=== PATIENT | female | born 1960 | race Caucasian/White ===

== ENCOUNTER 2017-01-02 14:40 | Inpatient (IN) | payer OTHER ==
[~2017-01-02] VITALS: Ht 162.6 cm; Wt 85.3 kg
[2017-01-02] MEDS ORDERED: ceFAZolin INJECTION 1,000 MG in NS (IVPB) 50 ML IV ONE (14:45)
[2017-01-02] MEDS ORDERED: morphine INJ 10 MG/ML 1ML (SYR OR VIAL) IVP ONE ×2 (14:45→16:00)
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
--- NOTE | 2017-01-02 15:07 | Diagnostic Imaging Report ---
INDICATION: Trauma. FINDINGS: The lungs appear clear without evidence of a focal pulmonary infiltrate, consolidation or pleural collection. There is no pneumothorax. Heart size and mediastinal contours are appropriate. No acute fractures are evident. IMPRESSION: 1. No radiographic evidence of an acute cardiopulmonary process. Dictated by: Dictated on workstation # [id number]
--- NOTE | 2017-01-02 15:12 | Diagnostic Imaging Report ---
EXAMINATION: Two views of the left tibia and fibula. INDICATION: Trauma. Distal leg pain. FINDINGS: There is a acute and severely comminuted fracture demonstrated of the distal fibula. There also is a transversely oriented fracture through the medial malleolus. There may be a small fracture through the posterior malleolus on the lateral view. The distal fibular cortex and tibia demonstrate overriding which suggests the possibility of a syndesmotic injury. Degenerative calcaneal spurs are demonstrated. The visualized portion of the foot is otherwise unremarkable. IMPRESSION: Comminuted distal left fibular fracture and a transversely oriented medial malleolus fracture and a suggestion of the possibility of a fracture within the posterior malleolus on the lateral view. The overriding of the tibia and fibula also suggests syndesmotic injury. Dictated by: Dictated on workstation # [id number]
[2017-01-02 15:14] LABS: BASOPHILS % (AUTO) 1 % (0-10); EOSINOPHILS # (AUTO) 0.1 10^3/uL (0.0-0.3); EOSINOPHILS % (AUTO) 1 % (0-10); LYMPHOCYTES % (AUTO) 26 % (12-44); MEAN CORPUSCULAR HEMOGLOBIN 30 PG (25-34); MEAN CORPUSCULAR HGB CONC 33 G/DL (32-36); MEAN CORPUSCULAR VOLUME 91 FL (80-99); MEAN PLATELET VOLUME 10.6 FL (7.4-10.4); MONOCYTES # (AUTO) 0.7 X 10^3 (0.0-1.0); MONOCYTES % (AUTO) 9 % (0-12); NEUTROPHILS # (AUTO) 4.9 X 10^3 (1.8-7.8); NEUTROPHILS % (AUTO) 63 % (42-75); PLATELET COUNT 233 10^3/uL (130-400); RED BLOOD COUNT 4.17 10^6/uL (4.35-5.85); RED CELL DISTRIBUTION WIDTH 13.4 % (10.0-14.5); WHITE BLOOD COUNT 7.7 10^3/uL (4.3-11.0)
[2017-01-02] MEDS ORDERED: morphine INJ 4 MG/ML 1 ML (VIAL/SYRINGE) IVP PRN (15:15)
[2017-01-02 15:32] LABS: ANION GAP 14 MMOL/L (5-14); BLOOD UREA NITROGEN 15 MG/DL (7-18); BUN/CREATININE RATIO 18; CALCIUM 9.1 MG/DL (8.5-10.1); CARBON DIOXIDE 18 MMOL/L (21-32); CHLORIDE 107 MMOL/L (98-107); CREATININE SERUM 0.83 MG/DL (0.60-1.30); GFR ESTIMATED > 60; GLUCOSE 104 MG/DL (70-105); POTASSIUM 3.5 MMOL/L (3.6-5.0); SODIUM 139 MMOL/L (135-145)
[2017-01-02] MEDS ORDERED: METOCLOPRAMIDE INJ 10 MG/2 ML (REGLAN) IV ONE (16:00)
[2017-01-02] MEDS ORDERED: FAMOTIDINE 20MG/2ML IV (PEPCID) IV ONE (16:00)
[2017-01-02] MEDS ORDERED: SUCCINYLCHOLINE INJ 100 MG/5 ML SYR ONE (16:11)
[2017-01-02] MEDS ORDERED: ONDANSETRON 4 MG/2 ML (SDV) Z0FRAN ONE (16:11)
[2017-01-02] MEDS ORDERED: LIDOCAINE PF 2% 5 ML (XYLOCAINE) VIAL ONE (16:11)
[2017-01-02] MEDS ORDERED: GENTAMICIN 40 MG/ML 2 ML INJ SDV ONE ×3 (16:11→17:11)
[2017-01-02] MEDS ORDERED: fentaNYL INJECTION 100 MCG/2 ML AMP ONE (16:11)
[2017-01-02] MEDS ORDERED: proPOfol 200 MG/20 ML (DIPRIVAN) VIAL IV ONE (16:11)
[2017-01-02] MEDS ORDERED: MIDAZOLAM 2 MG/2 ML (VERSED) VIAL ONE (16:11)
[2017-01-02] MEDS ORDERED: LACTATED RINGERS 1,000 ML IV ONE (16:11)
[2017-01-02] MEDS ORDERED: SEVOFLURANE (ULTANE) 15 ML INHAL SOLN ONE ×11 (16:11→19:26)
[2017-01-02] MEDS ORDERED: BISACODYL 10 MG SUPP (DULCOLAX) PR PRN (16:15)
[2017-01-02] MEDS ORDERED: morphine INJ 10 MG/ML 1ML (SYR OR VIAL) IVP PRN ×2 (16:15→20:00)
[2017-01-02] MEDS ORDERED: PROMETHAZINE INJ 25 MG/ML (PHENERGAN) AMP IVP PRN ×2 (16:15→20:00)
[2017-01-02] MEDS ORDERED: D5 1/2 NS 1000 ML IV SOLUTION 1,000 ML IV SCH (16:15)
[2017-01-02] MEDS ORDERED: ONDANSETRON 4 MG/2 ML (SDV) Z0FRAN IVP PRN ×2 (16:15→20:00)
[2017-01-02] MEDS ORDERED: diphenhydrAMINE 50 MG/ML INJ (BENADRYL) IV PRN (16:15)
[2017-01-02] MEDS ORDERED: NEO/POLY/BAC (NEOSPORIN) OINT 15 GM TUBE ONE (16:20)
[2017-01-02] MEDS: LACTATED RINGERS 1,000 ML IV PRN ×2 (16:47→17:28)
[2017-01-02] MEDS ORDERED: ceFAZolin 1,000 MG (ANCEF) VIAL ONE ×2 (16:53→23:43)
[2017-01-02] MEDS ORDERED: LACTATED RINGERS 1,000 ML IV PRN (17:23)
[2017-01-02] MEDS ORDERED: ceFAZolin 1,000 MG (ANCEF) VIAL IV ONE (17:30)
[2017-01-02] MEDS ORDERED: BUPIVACAINE 0.25% 30 ML (SENSORCAINE) VIAL ONE (18:21)
--- NOTE | 2017-01-02 18:51 | Progress Note-Pre Operative ---
Pre-Operative Progress Note H&P Reviewed The H&P was reviewed, patient examined and no changes noted. Date Seen by Provider: Jan 02, 2017 Time Seen by Provider: 15:30 Date H&P Reviewed: Jan 02, 2017 Time H&P Reviewed: 16:00 Pre-Operative Diagnosis: Displaced Open Bimalleolar Fracture Left Ankle FLOR JACQUES DO Jan 02, 2017 18:50
--- NOTE | 2017-01-02 18:53 | Progress Note-Post Operative ---
Post-Operative Progess Note Surgeon (s)/Garment Finisher (s) Surgeon FLOR JACQUES DO Garment Finisher: Dagoberto Humphries AVIATION ORDNANCE OFFICERMarilee Pre-Operative Diagnosis Displaced Open Bimalleolar Fracture Left Ankle Post-Operative Diagnosis same Procedure & Operative Findings Date of Procedure 01/02/17 Procedure Performed/Findings Open Reduction Internal Fixation Displace Bimalleolar Fracture Left Ankle Anesthesia Type General Estimated Blood Loss Estimated blood loss (mL): 20ml Specimens/Packing Specimens Removed none FLOR JACQUES DO Jan 02, 2017 18:53
[2017-01-02] MEDS ORDERED: morphine INJ 10 MG/ML 1ML (SYR OR VIAL) ONE (19:25)
--- NOTE | 2017-01-02 19:32 | Diagnostic Imaging Report ---
INDICATION: ORIF of the ankle. EXAMINATION: Left ankle from 01/02/2017 FINDINGS: This is an intraoperative evaluation of multiple fluoroscopic images provided. This makes the examination limited. There is a sideplate and multiple screws along the distal lateral malleolus. There are screws along the medial malleolus. The fracture sites are in good anatomic alignment. IMPRESSION: 1. Limited intraoperative evaluation. Dictated by: Dictated on workstation # [id number]
[2017-01-02] MEDS ORDERED: HYDROmorphone (DILAUDID) 2 MG/ML VIAL IVP PRN (20:00)
[2017-01-02] MEDS ORDERED: RT-ALBUTEROL SULF 2.5 MG/3 ML PRE-MIX VIAL INH ONE (20:00)
[2017-01-02 21:00] VITALS: BP 129/78
[2017-01-02] MEDS: KETOROLAC 30 MG/ML VIAL IVP PRN (21:01)
[2017-01-02 21:50] VITALS: BP 131/72
[2017-01-02 23:41] VITALS: BP 108/59
[2017-01-02] MEDS ORDERED: NS (IVPB) 50 ML ONE (23:43)
[2017-01-02] MEDS: ceFAZolin 2 GM/50 ML NS 50 ML IV SCH (23:51)
[2017-01-02] MEDS: HYDROcodone/APAP 10 MG/325 MG (LORTAB) TAB PO PRN (23:52)
[2017-01-03 04:39] VITALS: BP 90/58
[2017-01-03] MEDS: KETOROLAC 30 MG/ML VIAL IVP PRN (04:50)
[2017-01-03] MEDS ORDERED: NS (IVPB) 50 ML ONE (06:27)
[2017-01-03] MEDS ORDERED: ceFAZolin 1,000 MG (ANCEF) VIAL ONE (06:27)
[2017-01-03] MEDS: ceFAZolin 2 GM/50 ML NS 50 ML IV SCH (07:12)
[2017-01-03] MEDS: HYDROcodone/APAP 10 MG/325 MG (LORTAB) TAB PO PRN (07:39)
[2017-01-03 07:48] VITALS: BP 96/61
[2017-01-03] MEDS ORDERED: ASPIRIN E.C. 325 MG (ECOTRIN) TABLET PO SCH (09:00)
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
--- NOTE | 2017-01-03 11:37 | Discharge Inst-Simple/Standard ---
Discharge Inst-Standard Discharge Medications New, Converted or Re-Newed RX: RX on Chart Patient Instructions/Follow Up Plan of Care/Instructions/FU: f/u with orthopedics when back home in 10-14 days Touch toe only weight bearing on left leg using crutches for assistance Continue ice and elevation of left ankle Take 81mg aspirin daily to prevent DVT [place] 10/325 every 4-6 hrs for pain, may also take ibuprofen 600mg 3x/day as needed cover splint when showering, do not get wet No driving Activity as Tolerated: No Discharge Diet: No Restrictions Return to The Hospital For: Call for any questions or concerns, ask for who is erp consultant for orthopedics swelling could cause numbness/tingling/pain in left foot, may need to remove everton wrap and re-wrap splint a little looser BONI TSE APRN Jan 03, 2017 11:37 am
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
[2017-01-03] MEDS ORDERED: TRAM50TA2 PO (11:50)
[2017-01-03] MEDS ORDERED: SENN-20 PO (11:50)
[2017-01-03] MEDS ORDERED: HYDR-3820 PO (11:50)
[2017-01-03] MEDS ORDERED: SENNA W/DOCUSATE (SENOKOT S) TABLET PO SCH (21:00)
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
== END 2017-01-03 12:23 | disposition home or self-care (01) | DRG 494 ==
LOC: ER 14:41 → SDC 15:42 → 4TH 20:40 → ENPENDDIS 01-03 12:00
PROVIDERS: ADMIT Orthopaedic Surgery; ATTEND Orthopaedic Surgery
PROC: 0QSH04Z Reposition Left Tibia with Internal Fixation Device, Open Approach (ICD-10-PCS; 2017-01-02)
PROC: 0QSK04Z Reposition Left Fibula with Internal Fixation Device, Open Approach (ICD-10-PCS; principal; 2017-01-02 16:47)
DX: S82.842A Displaced bimalleolar fracture of left lower leg, initial encounter for closed fracture (principal); V00.831A Fall from motorized mobility scooter, initial encounter; Y99.8 Other external cause status
CPT/HCPCS: 36415; 71010; 73590; 80048; 85025; 94640; 94664; 96365; 96375; 96376

== ENCOUNTER → 2018-06-03 | Outpatient (CLI) | payer OTHER ==
[~2018-06-03] MED LIST: HYDR-3820 PO; SENN-20 PO; TRAM50TA2 PO
--- NOTE | 2018-06-10 15:48 | Diagnostic Imaging Report ---
INDICATION: Routine screening. COMPARISON: Prior mammogram from 06/02/2017. EXAMINATION: 2D and 3D bilateral screening mammography was performed with CAD. The current study was also evaluated with a Computer Aided Detection (CAD) system. FINDINGS: Scattered fibroglandular densities are identified, bilaterally. No mass or malignant appearing microcalcifications are seen. The axillae are unremarkable. IMPRESSION: No mammographic features suspicious for malignancy are identified. ACR BI-RADS Category 1: Negative. Result letter will be mailed to the patient. Note: At least 10% of breast cancer is not imaged by mammography. Dictated by: Dictated on workstation # [id number]
== END ==
LOC: RAD 10:35
PROVIDERS: ATTEND Obstetrics & Gynecology
DX: Z12.31 Encounter for screening mammogram for malignant neoplasm of breast (principal)
CPT/HCPCS: 77067

== ENCOUNTER 2018-07-19 05:35 | Outpatient (CLI) | payer OTHER ==
[~2018-07-19] VITALS: Ht 162.6 cm; Wt 62.1 kg
[2018-07-19] MEDS ORDERED: CYAN50008 PO (14:03)
[2018-07-19] MEDS ORDERED: MULT-351 PO (14:03)
== END 2018-07-19 14:04 | disposition home or self-care (01) ==
LOC: PREOP 05:35
PROVIDERS: ATTEND Specialist
DX: Z01.818 Encounter for other preprocedural examination (principal)

== ENCOUNTER 2018-07-22 06:17 | Day surgery (SDC) | payer OTHER ==
[~2018-07-22] VITALS: Ht 162.6 cm; Wt 62.1 kg
[~2018-07-22 06:17] MED LIST changes: +CYAN50008 PO; +MULT-351 PO
--- OUTSIDE RECORDS SUMMARY | 2018-07-22 06:20 | XMS REPORT ---
Author Author OTIS OCHOA Organization [facility] Address [address] [place] [address] Care Team Providers Care Health Outcomes Liaison Name Role Phone OTIS OCHOA Unavailable PROBLEMS Unknown Problems ALLERGIES No Information ENCOUNTERS Encounter Location Date Diagnosis [facility] [address] [facility] [id number] [place] [address] Sep, No condition on [place] II Z03.89 IMMUNIZATIONS No Known Immunizations SOCIAL HISTORY Never Assessed REASON FOR VISIT Psychological evaluation for bariatric surgery. PLAN OF CARE VITAL SIGNS MEDICATIONS Medication Instructions Dosage Frequency Start Date End Date Duration Status Meloxicam Active RESULTS No Results PROCEDURES Procedure Date Ordered Result Body Site Psych diagnostic evaluation, new patient September 09, 2017 INSTRUCTIONS MEDICATIONS ADMINISTERED No Known Medications
[2018-07-22] MEDS ORDERED: TIMOLOL MALEATE 0.5% 5 ML (TIMOPTIC) BTL OU PRN (06:30)
[2018-07-22] MEDS ORDERED: MOXIFLOXACIN OPHTH SOLN 5 MG/ML 0.3 ML SYRINGE OP ONE (06:30)
[2018-07-22] MEDS ORDERED: LIDOCAINE PF 1% 2 ML AMP IR PRN (06:30)
[2018-07-22] MEDS ORDERED: POVIDONE (BETADINE) OPHTH SOLN 5% 30 ML OP ONE (06:30)
[2018-07-22] MEDS: TETRACAINE 0.5% OPHTH SOLN 4 ML BTL (SINGLE DOSE ONLY) OU PRN ×4 (06:32→06:48)
[2018-07-22 06:38] VITALS: BP 120/80
[2018-07-22] MEDS: CYCLOPENTOLATE 1% (CYCLOGYL) 2 ML DROPS OP SCH ×3 (06:39→06:48)
[2018-07-22] MEDS: PHENYLEPHRINE 10% OPHTH (NEO-SYN) 5 ML BTL OU SCH ×3 (06:39→06:48)
--- NOTE | 2018-07-22 06:46 | Ophthalmologist Pre-Op Note ---
Pre-Operative Progress Note H&P Reviewed The H&P was reviewed, patient examined and no changes noted. Date H&P Reviewed: Jul 22, 2018 Time H&P Reviewed: 06:46 Pre-Op Dx Cataract, Right Eye AMANDA NAVARRETE MD Jul 22, 2018 06:46
[2018-07-22] MEDS ORDERED: MIDAZOLAM 2 MG/2 ML (VERSED) VIAL ONE (06:56)
--- NOTE | 2018-07-22 07:30 | Ophthalmology Operative Report ---
Cataract removal/placement IOL PREOPERATIVE DIAGNOSIS: Cataract Right Eye POSTOPERATIVE DIAGNOSIS: Cataract Right Eye PROCEDURE: Cataract removal and placement of posterior chamber implant, right eye SURGEON: Hayes Navarrete ANESTHESIA: Topical with sedation COMPLICATIONS: None ESTIMATED BLOOD LOSS: Minimal DESCRIPTION OF PROCEDURE: After proper informed consent was obtained, the patient, a 57 female, was taken to the Operating Room and the right eye was anesthetized with tetracaine. The right eye was then prepped and draped in the usual manner. A wire lid speculum was placed. A paracentesis was made at the left hand position. Preservative free lidocaine was injected into the anterior chamber followed by viscoelastic. A clear corneal incision was made in the temporal position. A capsulorrhexis was preformed and the central nuclear and cortical material were removed. The posterior capsule was polished and Horacio 16.5 AU00T0 IOL was placed into the capsular bag. The residual viscoelastic was aspirated and balanced saline solution was injected into the anterior chamber. Moxifloxacin was injected into the anterior chamber. The wound was checked and found to be water tight. The patient tolerated the procedure well without complications. HAYES NAVARRETE MD Jul 22, 2018 07:30
[2018-07-22 07:46] VITALS: BP 112/72
[2018-07-22] MEDS ORDERED: acetaZOLAMIDE ER 500 MG CAP (DIAMOX SEQUELS) PO ONE (08:00)
--- NOTE | 2018-07-22 12:35 | Anesthesia-General Post-Op ---
MAC Patient Condition Mental Status/LOC: Same as Preop Cardiovascular: Satisfactory Nausea/Vomiting: Absent Respiratory: Satisfactory Pain: Controlled Complications: Absent Post Op Complications Complications None Follow Up Care/Instructions Patient Instructions None needed. Anesthesiology Discharge Order Discharge Order Patient is doing well, no complaints, stable vital signs, no apparent adverse anesthesia problems. No complications reported per nursing. JUNG MCLEOD CRNA Jul 22, 2018 12:35
== END 2018-07-22 07:45 | disposition home or self-care (01) ==
LOC: SDC 06:17
PROVIDERS: ATTEND Specialist
DX: H25.11 Age-related nuclear cataract, right eye (principal); Z72.89 Other problems related to lifestyle

== ENCOUNTER → 2019-06-07 | Outpatient (CLI) | payer OTHER ==
--- NOTE | 2019-06-07 13:27 | Diagnostic Imaging Report ---
INDICATION: Routine screening. COMPARISON: 06/03/2018 and 06/02/2017. TECHNIQUE: 2D and 3D bilateral screening mammography was performed with CAD. FINDINGS: Scattered fibroglandular densities are identified bilaterally. The parenchymal pattern is stable. No mass or malignant appearing microcalcifications are seen. The axillae are unremarkable. IMPRESSION: No mammographic features suspicious for malignancy are identified. ACR BI-RADS Category 1: Negative. Result letter will be mailed to the patient. Note: At least 10% of breast cancer is not imaged by mammography. Dictated by: Dictated on workstation # [id number]
== END ==
LOC: RAD 09:55
PROVIDERS: ATTEND Obstetrics & Gynecology
DX: Z12.31 Encounter for screening mammogram for malignant neoplasm of breast (principal)
CPT/HCPCS: 77067

== ENCOUNTER → 2020-06-10 | Outpatient (CLI) | payer OTHER ==
[~2020-06-10] MED LIST changes: +ACHYD1T PO; -HYDR-3820 PO; -TRAM50TA2 PO; +TRM50T PO
--- NOTE | 2020-06-10 10:43 | Diagnostic Imaging Report ---
INDICATION: Routine screening. COMPARISON: 06/07/2019 and 06/03/2018. TECHNIQUE: 2D and 3D bilateral screening mammography was performed with CAD. FINDINGS: Scattered fibroglandular densities are identified bilaterally. The parenchymal pattern is stable. No mass or malignant appearing microcalcifications are seen. There are benign parenchymal and vascular calcifications bilaterally. Axillae are unremarkable. IMPRESSION: No mammographic features suspicious for malignancy are identified. ACR BI-RADS Category 2: Benign findings. Result letter will be mailed to the patient. Note: At least 10% of breast cancer is not imaged by mammography. Dictated by: Dictated on workstation # [id number]
== END ==
LOC: RAD 08:00
PROVIDERS: ATTEND Obstetrics & Gynecology
DX: Z12.31 Encounter for screening mammogram for malignant neoplasm of breast (principal)
CPT/HCPCS: 77063; 77067

== ENCOUNTER → 2021-06-16 | Outpatient (CLI) | payer OTHER ==
[~2021-06-16] MED LIST changes: -CYAN50008 PO; +CYAN50009 PO
--- NOTE | 2021-06-16 12:32 | Diagnostic Imaging Report ---
INDICATION: Routine screening. Comparison is made with prior mammogram 06/10/2020 and 06/07/2019. 2-D and 3-D bilateral screening mammography was performed with CAD. Both breasts are heterogeneously dense, limiting the sensitivity of mammography. Benign parenchymal and vascular calcifications again noted bilaterally. No mass or malignant-appearing microcalcifications are seen. Axillae are unremarkable. IMPRESSION: BI-RADS Category 2 No mammographic features suspicious for malignancy are identified. ACR BI-RADS Category 2: Benign findings. Result letter will be mailed to the patient. Note: At least 10% of breast cancer is not imaged by mammography. Dictated by: Dictated on workstation # [id number]
== END ==
LOC: RAD 11:15
PROVIDERS: ATTEND Obstetrics & Gynecology
DX: Z12.31 Encounter for screening mammogram for malignant neoplasm of breast (principal)
CPT/HCPCS: 77063; 77067

== ENCOUNTER 2022-04-06 05:30 | Outpatient (CLI) | payer OTHER ==
[~2022-04-06] VITALS: Ht 162.6 cm; Wt 77.3 kg
[2022-04-06] MEDS ORDERED: MELO15TA39 PO (17:04)
[2022-04-06] MEDS ORDERED: OMEP40CA6 PO (17:04)
== END 2022-04-06 17:17 | disposition home or self-care (01) ==
LOC: PREOP 05:30
PROVIDERS: ATTEND Podiatrist Foot & Ankle Surgery
DX: Z01.818 Encounter for other preprocedural examination (principal)

== ENCOUNTER 2022-04-13 06:04 | Day surgery (SDC) | payer OTHER ==
[~2022-04-13] VITALS: Ht 162.6 cm; Wt 77.3 kg
[2022-04-13] VITALS (11 sets, daily range): BP systolic 100–141; BP diastolic 75–97
[~2022-04-13 06:04] MED LIST changes: +MELO15TA39 PO; +OMEP40CA6 PO
[2022-04-13] MEDS ORDERED: ceFAZolin INJECTION 1,000 MG VIAL IV ONE (06:30)
[2022-04-13] MEDS ORDERED: LACTATED RINGERS 1,000 ML IV PRN (06:30)
[2022-04-13] MEDS ORDERED: ceFAZolin 1 GM/NS 50 ML (SDC/OR ONLY) IV ONE ×2 (06:45)
[2022-04-13] MEDS ORDERED: LIDOCAINE PF 2% 5 ML (XYLOCAINE) VIAL ONE (06:54)
[2022-04-13] MEDS ORDERED: ONDANSETRON 4 MG/2 ML (SDV) Z0FRAN ONE (06:54)
[2022-04-13] MEDS ORDERED: proPOfol 200 MG/20 ML (DIPRIVAN) VIAL IV ONE (06:54)
[2022-04-13] MEDS ORDERED: fentaNYL INJ 100 MCG/2 ML AMP ONE (06:54)
[2022-04-13] MEDS ORDERED: MIDAZOLAM 2 MG/2 ML (VERSED) VIAL ONE (06:55)
[2022-04-13] MEDS ORDERED: BUPIVACAINE 0.5% 30 ML (SENSORCAINE) VIAL ONE (07:20)
--- NOTE | 2022-04-13 07:53 | Progress Note-Pre Operative ---
Pre-Operative Progress Note Date of Available H&P: Apr 13, 2022 Date H&P Reviewed: Apr 13, 2022 Time H&P Reviewed: 07:52 Pre-Operative Diagnosis: Hallux Valgus, right LUCIA FALL DPScar Apr 13, 2022 07:53
[2022-04-13] MEDS ORDERED: SEVOFLURANE (ULTANE) 15 ML INHAL SOLN ONE (09:03)
--- NOTE | 2022-04-13 09:09 | Progress Note-Post Operative ---
Post-Operative Progess Note Surgeon (s)/Immigration Patrol Inspector (s) Surgeon LUCIA FALL DPM Immigration Patrol Inspector: none Pre-Operative Diagnosis Hallux Valgus, right Post-Operative Diagnosis Same Procedure & Operative Findings Date of Procedure 04/13/22 Procedure Performed/Findings Jung-Kenny Bunionectomy, right Anesthesia Type General Estimated Blood Loss Estimated blood loss (mL): Minimal Specimens/Packing Specimens Removed none LUCIA FALL DPM Apr 13, 2022 09:09
[2022-04-13] MEDS ORDERED: CEPH500C PO (09:11)
[2022-04-13] MEDS ORDERED: ACHD5005 PO (09:11)
[2022-04-13] MEDS ORDERED: HYDROcodone/APAP 5 MG/325 MG (LORTAB) TAB PO PRN (09:15)
[2022-04-13] MEDS ORDERED: HYDROmorphone 2 MG/ML VIAL (DILAUDID) IV ONE (09:15)
[2022-04-13] MEDS ORDERED: LACTATED RINGERS 1,000 ML IV SCH (09:15)
[2022-04-13] MEDS ORDERED: ONDANSETRON 4 MG/2 ML (SDV) Z0FRAN IVP PRN (09:15)
[2022-04-13] MEDS ORDERED: morphine INJ 10 MG/ML 1ML (SYR OR VIAL) IVP ONE (09:15)
--- NOTE | 2022-04-13 11:10 | Physical Therapy Ortho Eval ---
PT Orthopedic Evaluation Type of Surgery Hallux Valgus, right Prior Level of Function Current Living Status: Spouse Locomotion (Upon Admit): Independent Established Durable Medical Eq: Crutches knee scooter Subjective Entry Into Home: Stairs Without Railing Steps Into Home: 3 Steps Accessories: No Railing Motor Control Motor Control: Motor Control WNL ROM ROM: WFL, except focal deficit Strength Strength: WFL Transfer SCALE: Activities may be completed with or without assistive devices. 5-Edjsfgeexn-qyqufng completes the activity by him/herself with no assistance from a helper. 5-Set-up or Clean-up Assistance-helper sets up or cleans up; patient completes activity. [place] assists only prior to or following the activity. 4-Supervision or Touching Assistance-helper provides verbal cues and/or touching/steadying and/or contact guard assistance as patient completes activity. Assistance may be provided throughout the activity or intermittently. 3-Partial/Moderate Assistance-helper does LESS THAN HALF the effort. [place] lifts, holds or supports trunk or limbs, but provides less than half the effort. 2-Substantial/Maximal Assistance-helper does MORE THAN HALF the effort. [place] lifts or holds trunk or limbs and provides more than half the effort. 5-Uvxrdixnu-onbgap does ALL the effort. Patient does none of the effort to complete the activity. Or, the assistance of 2 or more helpers is required for the patient to complete the activity. If activity was not attempted, code reason: 7-Patient Refused. 9-Not Applicable-not attempted and the patient did not perform the activity before the current illness, exacerbation or injury. 10-Not Attempted due to Environmental Limitations-(lack of equipment, weather restraints, etc.). 88-Not Attempted due to Medical Conditions or Safety Concerns. Transfers (B, C, W/C) (QC): 4 Gait Gait Assistive Device: Crutches Right Lower Extremity: Right Weight Bearing Status RLE: Non Weight Bearing Left Lower Extremity: Left Weight Bearing Status LLE: Full Weight Bearing Other Weight Bearing Inst.: heel contact for balance and transfers Gait (QC): 4 Distance: 50' Gait Level of Assist: 4 Treatment Rendered Treatment: Gait Train, Step Train (x 2 steps CGA for safety with VC's for right foot placement for balance) Plan Treatment Plan: Discharge, Education, Gait, Safety, Transfers PT/Family Agrees to Plan: Yes Time Time In: 1046 Time Out: 1100 Total Billed Treatment Time: 14 Billed Treatment Time 1 visit EVLowC 14 min DEAN TERESA PT Apr 13, 2022 11:10
--- NOTE | 2022-04-13 11:12 | Anesthesia-General Post-Op ---
General Patient Condition Mental Status/LOC: Same as Preop Cardiovascular: Satisfactory Nausea/Vomiting: Absent Respiratory: Satisfactory Pain: Controlled Complications: Absent Post Op Complications Complications None Follow Up Care/Instructions Patient Instructions None needed. Anesthesia/Patient Condition Patient Condition Patient is doing well, no complaints, stable vital signs, no apparent adverse anesthesia problems. No complications reported per nursing. NIECY LAMB CRNA Apr 13, 2022 11:11
--- NOTE | 2022-04-13 14:33 | Diagnostic Imaging Report ---
INDICATION: Post operative evaluation. COMPARISON: None available. TECHNIQUE: Two radiographs of the right foot dated 04/13/2022. FINDINGS: Post surgical changes involving the 1st ray are noted with associated osteotomy and orthopedic hardware noted. Post surgical soft tissue gas is noted within the area overlying the 1st MTP joint. No acute fracture or dislocation. No destructive osseous process. Mild scattered degenerative changes including within the midfoot. Small plantar calcaneal enthesophyte. No suspicious radiopaque foreign body. IMPRESSION: Post surgical changes involving the 1st ray without evidence of hardware complication or acute osseous abnormality. Mild degenerative changes. Dictated by: Dictated on workstation # [id number]
--- NOTE | 2022-04-13 14:46 | OPERATIVE REPORT ---
DATE OF SERVICE: 04/13/2022 SURGEON: Lucia Fall DPM. PREOPERATIVE DIAGNOSIS: Hallux abductovalgus metatarsal primus varus, right foot. POSTOPERATIVE DIAGNOSIS: Hallux abductovalgus metatarsal primus varus, right foot. PROCEDURE: Modified Jung-Kenny bunionectomy, right foot. WOUND CLASS: Clean. ANESTHESIA: General. HEMOSTASIS: Pneumatic thigh tourniquet at 250 mmHg. INDICATIONS: This 61-year-old female presents complaining of a painful bunion, right foot. Conservative therapy is met with unsatisfactory results and the patient is agreeable to surgical intervention after risks and complications were discussed at length. No guarantees were extended to the patient and she is willing to proceed. DESCRIPTION OF PROCEDURE: The patient was brought back to the operating table, placed in secure supine position. Appropriate timeout was performed. A general anesthetic was then induced. A thigh tourniquet was placed on the right lower extremity over several layers of padding. The right foot was then prepped and draped in normal sterile manner. The right foot was then elevated, allowed to exsanguinate after which the tourniquet was inflated to 250 mmHg. Attention was then directed to the dorsal aspect of the right first metatarsophalangeal joint where a 6 cm longitudinal linear incision was created. The incision was deepened in the same plane with great care to identify and retract all vital neurovascular structures. Only necessary blood vessels were cauterized as encountered. The incision was deepened down to the capsular tissue where a capsulotomy was performed that was longitudinal. The capsule tissue was reflected medial laterally exposing the hypertrophic medial eminence of the first metatarsal head, which was resected utilizing power sagittal saw. Attention was then directed to the first intermetatarsal space where blunt dissection was carried out to the lateral capsule where a lateral capsulorrhaphy was performed to the first metatarsophalangeal joint. The conjoint tendon of the adductor hallucis was also released. The fibular sesamoidal ligament was also released. Attention was then redirected to the medial aspect of the first metatarsal head where a Chevron-type osteotomy was performed. This was done with a power sagittal saw, allowing the capital fragment to translocate laterally and the capital fragment was fixated in its corrected position with a 0.062 threaded K-wire driven from proximal dorsal to plantar distal across the osteotomy with great care not to penetrate the articular cartilage. The K-wire was cut flush with the dorsal aspect of the first metatarsal. The head of the first metatarsal was further contoured and smoothed with a power sagittal saw and power bur. Attention was then directed to the diaphysis of the proximal phalanx of the right hallux where a subperiosteal dissection was carried out. A wedge of bone was resected with the base medial and the lateral cortices held intact. Once the wedge of bone was resected, the gap closed. Two private pilot holes were created to the dorsal medial aspect of the osteotomy allowing for a 28-gauge monofilament wire to pass through the private pilot hole securing the osteotomy in a closed position. Excellent bony apposition and fixation was appreciated. The wound was flushed with copious amounts of normal saline throughout the procedure. Closure was then performed in layers. Deep closure was performed with 3-0 Vicryl, superficial with 4-0 Vicryl, skin closed with 4-0 Prolene in a horizontal mattress type stitch. Postoperative injection consisted of 17 mL of 0.5% Marcaine injected in a local infusion to the surgical site basically in a Resendiz block. A 10 mg of dexamethasone was also utilized injected into the lateral aspect of the right first metatarsophalangeal joint. Postoperative dressing consisted of Betadine soaked Adaptic, sterile 4 x 4, sterile Kerlix all secured with a Coban wrap. The patient tolerated the anesthesia and procedure well, was transported from the operating room to the recovery room with vital signs stable and vascular status intact to all digits of the right foot. She was given postoperative instructions as well as prescription for Keflex and Vicodin. She will follow up in my office in 10 days' period of time or sooner if necessary. She is to be nonweightbearing on the right lower extremity with crutches. Job ID: [id number] DocumentID: [id number] Dictated Date: 04/13/2022 09:17:43 Cycle Consultant Date: 04/13/2022 14:45:20 Dictated By: LUCIA FALL DPM
== END 2022-04-13 11:20 | disposition home or self-care (01) ==
LOC: SDC 06:04
PROVIDERS: ATTEND Podiatrist Foot & Ankle Surgery
DX: M77.11 Lateral epicondylitis, right elbow (principal); M79.671 Pain in right foot
CPT/HCPCS: 28299; 73620; 87081; 97161; C1713

== ENCOUNTER → 2022-05-12 | Outpatient (CLI) | payer OTHER ==
[~2022-05-12] MED LIST changes: +ACHD5005 PO; +CEPH500C PO
--- NOTE | 2022-05-12 12:55 | Diagnostic Imaging Report ---
US SOFT TISSUE UNLISTED [id number] INDICATION: Soft tissue mass COMPARISON: None available. TECHNIQUE: Targeted ultrasound imaging of the left arm was performed. Grayscale and color Doppler was utilized FINDINGS: The site of palpable concern corresponds to a noncompressible segment of the basilic vein indicative of superficial venous thrombosis. IMPRESSION: Superficial venous thrombosis within the basilic vein accounts for the palpable abnormality. Dictated by: Dictated on workstation # [id number]
== END ==
LOC: RAD 09:45
PROVIDERS: ATTEND Internal Medicine
DX: I82.619 Acute embolism and thrombosis of superficial veins of unspecified upper extremity (principal)
CPT/HCPCS: 76999

== ENCOUNTER → 2022-11-04 | Outpatient (CLI) | payer OTHER ==
--- NOTE | 2022-11-04 19:18 | Diagnostic Imaging Report ---
INDICATION: Routine screening. COMPARISON: Prior mammograms from 06/16/2021 and 06/10/2020. EXAMINATION: 2D and 3D bilateral screening mammography was performed with CAD. The current study was also evaluated with a Computer Aided Detection (CAD) system. FINDINGS: Scattered fibroglandular densities are identified, bilaterally. No dominant mass or malignant-appearing microcalcifications are seen. Axillae are unremarkable. IMPRESSION: No mammographic features suspicious for malignancy are identified. ACR BI-RADS Category 1: Negative. Result letter will be mailed to the patient. Note: At least 10% of breast cancer is not imaged by mammography. Dictated by: Dictated on workstation # [id number]
== END ==
LOC: RAD 08:58
PROVIDERS: ATTEND Nurse Practitioner Women's Health
DX: Z01.419 Encounter for gynecological examination (general) (routine) without abnormal findings (principal); Z12.31 Encounter for screening mammogram for malignant neoplasm of breast
CPT/HCPCS: 77063; 77067

== ENCOUNTER → 2023-01-29 | Outpatient (CLI) | payer OTHER ==
[~2023-01-29] MED LIST changes: +IRON DEXTRAN 1,000 MG/NS 250 ML IVPB IV ONE; +IRON DEXTRAN 25 MG/NS 6.25 ML TOTAL VOLUME IV ONE
[2023-01-29 10:07] VITALS: BP 127/81
== END ==
LOC: SDC 09:45 → EDSTATUS 09:48 → SDC 09:48
PROVIDERS: ATTEND Internal Medicine
DX: E61.1 Iron deficiency (principal)
CPT/HCPCS: 96365

== ENCOUNTER → 2023-06-08 | Outpatient (CLI) | payer OTHER ==
[~2023-06-08] MED LIST changes: -IRON DEXTRAN 1,000 MG/NS 250 ML IVPB IV ONE; -IRON DEXTRAN 25 MG/NS 6.25 ML TOTAL VOLUME IV ONE
--- NOTE | 2023-06-08 08:51 | Diagnostic Imaging Report ---
EXAMINATION: Bilateral pelvic radiographs. TECHNIQUE: AP view of the pelvis and AP and crosstable views of the bilateral hips obtained. HISTORY: HIP PAIN COMPARISON: None available. FINDINGS: Alignment is normal. No fracture is seen. Mild bilateral femoral acetabular joint space narrowing and marginal osteophyte formation. Pubic symphysis and sacroiliac joints are normal. Mild degenerative changes in the visualized lumbar spine. Visualized bowel gas is nondistended. IMPRESSION: 1. No fracture. 2. Mild degenerative changes. Dictated by: Dictated on workstation # [id number]
== END ==
LOC: RAD 07:31
PROVIDERS: ATTEND Internal Medicine
DX: M16.0 Bilateral primary osteoarthritis of hip (principal)
CPT/HCPCS: 73523